=== PATIENT | male | born 1940 | race Caucasian/White ===

== ENCOUNTER → 2016-11-01 | Outpatient (CLI) | payer MEDICARE | END | disposition home or self-care (01) | LOC: LABWHC1 12:58 | PROVIDERS: ATTEND Psychiatry & Neurology Neurology | DX: I48.91 Unspecified atrial fibrillation (principal) | CPT/HCPCS: 36415; 93005 ==

== ENCOUNTER → 2017-11-03 | Outpatient (CLI) | payer MEDICARE ==
--- NOTE | 2017-11-08 11:17 | HM ---
HOLTER MONITOR REPORT Patient was monitored for 24 hours. Baseline rhythm is a sinus mechanism with a normal conduction. The average rate 61 beats per minute. Minimum of 59, maximum 97 beats per minute. Ventricular ectopic activity was present in the form of rare single PVCs. Supraventricular ectopic activity was present in the form of rare single PACs. There was an episode consistent with pacemaker activity. Symptoms of dizziness and lightheadedness did not correlate with any dysrhythmia. CONCLUSION: 1. Sinus mechanism baseline rhythm with evidence of pacemaker activity with no evidence to suggest pacer malfunction. 2. Rare ventricular ectopic activity. 3. Rare supraventricular ectopic activity. 4. Symptoms of dizziness did not correlate with any dysrhythmia. MMODL / IJN: [id number] /
== END | disposition home or self-care (01) ==
LOC: RADECHMAIN 12:09
PROVIDERS: ATTEND Psychiatry & Neurology Neurology
DX: I49.3 Ventricular premature depolarization (principal); Z95.0 Presence of cardiac pacemaker
CPT/HCPCS: 93225; 93226

== ENCOUNTER 2018-03-08 20:02 | Observation (INO) | payer MEDICARE ==
[2018-03-08] MEDS ORDERED: SODIUM CHLORIDE 0.9% 1,000 ML IV STA (20:24)
--- NOTE | 2018-03-08 20:56 | ED ---
Neuro HPI - General Chief Complaint: Neuro Symptoms/Deficit Stated Complaint: Arm & hand numbness Time Seen by Provider: 03/08/18 20:12 Source: patient, RN notes reviewed Mode of arrival: ambulatory Limitations: no limitations - History of Present Illness Is the patient presenting with stroke symptoms?: No Initial Comments: This is a 77-year-old male with a history of A. 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 This has since gotten improved he still has some deficit in his duty officer but it is improving no more facial numbness or other symptoms no headache blurry vision fevers chills nausea vomiting sweats no other symptoms with respect to lower extremity weakness. He has no prior history of stroke he states. - Related Data Home Medications: Home Medications Medication Instructions Recorded Confirmed Apixaban [Eliquis] 5 mg PO BID 03/08/18 03/08/18 Atorvastatin Calcium [Lipitor] 10 mg PO HS 03/08/18 03/08/18 Carbidopa/Levodopa [Sinemet CR 1 tab PO BID@0900,1500 03/08/18 03/08/18 50-200 mg] Carbidopa/Levodopa/Entacapone 1 tab PO TID@0700,1200,1700 03/08/18 03/08/18 [Stalevo 200] Escitalopram Oxalate [Lexapro] 10 mg PO DAILY 03/08/18 03/08/18 Finasteride [Proscar] 5 mg PO DAILY 03/08/18 03/08/18 Metoprolol Succinate (ER) [Toprol 50 mg PO DAILY 03/08/18 03/08/18 Xl] Pantoprazole Sodium [Protonix] 40 mg PO DAILY 03/08/18 03/08/18 Sotalol [Betapace] 80 mg PO BID 03/08/18 03/08/18 Tamsulosin HCl [Flomax] 0.4 mg PO DAILY 03/08/18 03/08/18 Allergies/Adverse Reactions: Allergies Allergy/AdvReac Type Severity Reaction Status Date / Time No Known Allergies Allergy Verified 03/08/18 20:24 Review of Systems ROS Statement: Those systems with pertinent positive or pertinent negative responses have been documented in the HPI. ROS Other: All systems not noted in ROS Statement are negative. General Exam - General Exam Comments Initial Comments: This is a well-developed well-nourished awake alert oriented 3 male Limitations: no limitations General appearance: alert, in no apparent distress Head exam: Present: atraumatic, normocephalic, normal inspection Eye exam: Present: normal appearance, PERRL, EOMI. Absent: scleral icterus, conjunctival injection, periorbital swelling ENT exam: Present: normal exam, mucous membranes moist Neck exam: Present: normal inspection, other (Rate or JVD or bruits). Absent: tenderness, meningismus, lymphadenopathy Respiratory exam: Present: normal lung sounds bilaterally. Absent: respiratory distress, wheezes, rales, rhonchi, stridor Cardiovascular Exam: Present: regular rate, normal rhythm, normal heart sounds. Absent: systolic murmur, diastolic murmur, rubs, gallop, clicks GI/Abdominal exam: Present: soft, normal bowel sounds. Absent: distended, tenderness, guarding, rebound, rigid Extremities exam: Present: normal inspection, full ROM, normal capillary refill. Absent: tenderness, pedal edema, joint swelling, calf tenderness Back exam: Present: normal inspection Neurological exam: Present: alert, oriented X3, CN II-XII intact, motor sensory deficit (Diminished duty officer strength the right upper extremity compared to the left very minimal) Psychiatric exam: Present: normal affect, normal mood Skin exam: Present: warm, dry, intact, normal color. Absent: rash Stroke MDM - Lab Data Result diagrams: 03/08/18 20:36 03/08/18 20:36 Lab Results 03/08/18 03/08/18 03/08/18 Range/Units 20:36 20:36 20:36 WBC 5.9 (3.8-10.6) k/uL RBC 4.43 (4.30-5.90) m/uL Hgb 13.4 (13.0-17.5) gm/dL Hct 40.4 (39.0-53.0) % MCV 91.0 (80.0-100.0) fL MCH 30.3 (25.0-35.0) pg MCHC 33.2 (31.0-37.0) g/dL RDW 13.4 (11.5-15.5) % Plt Count 184 (150-450) k/uL Neutrophils % 70 % Lymphocytes % 21 % Monocytes % 5 % Eosinophils % 2 % Basophils % 1 % Neutrophils # 4.1 (1.3-7.7) k/uL Lymphocytes # 1.3 (1.0-4.8) k/uL Monocytes # 0.3 (0-1.0) k/uL Eosinophils # 0.1 (0-0.7) k/uL Basophils # 0.0 (0-0.2) k/uL PT (9.0-12.0) sec INR (<1.2) APTT (22.0-30.0) sec Sodium 141 (137-145) mmol/L Potassium 4.4 (3.5-5.1) mmol/L Chloride 105 (98-107) mmol/L Carbon Dioxide 30 (22-30) mmol/L Anion Gap 6 mmol/L BUN 15 (9-20) mg/dL Creatinine 0.90 (0.66-1.25) mg/dL Est GFR (CKD-EPI)AfAm >90 (>60 ml/min/1.73 sqM) Est GFR (CKD-EPI)NonAf 83 (>60 ml/min/1.73 sqM) Glucose 102 H (74-99) mg/dL Calcium 9.1 (8.4-10.2) mg/dL Magnesium 2.0 (1.6-2.3) mg/dL Total Bilirubin 0.8 (0.2-1.3) mg/dL AST 22 (17-59) U/L ALT 16 L (21-72) U/L Alkaline Phosphatase 61 (38-126) U/L Total Creatine Kinase 38 L (55-170) U/L CK-MB (CK-2) 0.4 (0.0-2.4) ng/mL CK-MB (CK-2) Rel Index 1.1 Troponin I <0.012 (0.000-0.034) ng/mL Total Protein 6.3 (6.3-8.2) g/dL Albumin 3.4 L (3.5-5.0) g/dL 03/08/18 Range/Units 20:36 WBC (3.8-10.6) k/uL RBC (4.30-5.90) m/uL Hgb (13.0-17.5) gm/dL Hct (39.0-53.0) % MCV (80.0-100.0) fL MCH (25.0-35.0) pg MCHC (31.0-37.0) g/dL RDW (11.5-15.5) % Plt Count (150-450) k/uL Neutrophils % % Lymphocytes % % Monocytes % % Eosinophils % % Basophils % % Neutrophils # (1.3-7.7) k/uL Lymphocytes # (1.0-4.8) k/uL Monocytes # (0-1.0) k/uL Eosinophils # (0-0.7) k/uL Basophils # (0-0.2) k/uL PT 10.5 (9.0-12.0) sec INR 1.0 (<1.2) APTT 28.1 (22.0-30.0) sec Sodium (137-145) mmol/L Potassium (3.5-5.1) mmol/L Chloride (98-107) mmol/L Carbon Dioxide (22-30) mmol/L Anion Gap mmol/L BUN (9-20) mg/dL Creatinine (0.66-1.25) mg/dL Est GFR (CKD-EPI)AfAm (>60 ml/min/1.73 sqM) Est GFR (CKD-EPI)NonAf (>60 ml/min/1.73 sqM) Glucose (74-99) mg/dL Calcium (8.4-10.2) mg/dL Magnesium (1.6-2.3) mg/dL Total Bilirubin (0.2-1.3) mg/dL AST (17-59) U/L ALT (21-72) U/L Alkaline Phosphatase (38-126) U/L Total Creatine Kinase (55-170) U/L CK-MB (CK-2) (0.0-2.4) ng/mL CK-MB (CK-2) Rel Index Troponin I (0.000-0.034) ng/mL Total Protein (6.3-8.2) g/dL Albumin (3.5-5.0) g/dL - NIH Stroke Scale 1a. Level of Consciousness: (0) alert 1b. LOC Questions: (0) answers correctly 1c. LOC Commands: (0) performs tasks correctly 2. Best Gaze: (0) normal 3. Visual: (0) no visual loss 4. Facial Palsy: (0) normal symmetrical movement 5a. Motor Arm Left: (0) no drift 5b. Motor Arm Right: (0) no drift 6a. Motor Leg Left: (0) no drift 6b. Motor Leg Right: (0) no drift 7. Limb Ataxia: (0) absent 8. Sensory: (0) normal 9. Best Language: (0) no aphasia 10. Dysarthria: (0) normal 11. Extinction/Inattention: (0) no abnormality - Thrombolytic Inclusion/Exclusion Thrombolytic Contraindications: Rapidly Improving s/s - Medical Decision Making I did review the imaging and report no acute findings. Please see the complete report for all information. I did have a discussed with patient family regarding findings. He is totally resolve with respect to symptoms he presented with. He will be admitted for evaluation by neurology. I did discuss case with Taz Mann who is covering for Dr. Donavan cheng. - EKG Data -: EKG Interpreted by Me (Paced rhythm rate of 60 SC interval 104 QRS duration 94 QT since QTC 460/46) Past Medical History Past Medical History: Atrial Fibrillation, Hyperlipidemia, Hypertension Additional Past Medical History / Comment(s): parkinson's History of Any Multi-Drug Resistant Organisms: None Reported Past Surgical History: Appendectomy, Heart Catheterization, Pacemaker Additional Past Surgical History / Comment(s): colonoscopy, polyp removal. Past Psychological History: No Psychological Hx Reported Smoking Status: Never smoker Past Alcohol Use History: None Reported Past Drug Use History: None Reported Course Vital Signs 03/08/18 03/08/18 03/08/18 20:05 20:30 20:57 Temperature 98.1 F Pulse Rate 66 60 Respiratory 16 16 Rate Blood Pressure 132/82 165/92 167/90 O2 Sat by Pulse 97 97 99 Oximetry 03/08/18 03/08/18 03/08/18 21:00 21:10 21:20 Temperature Pulse Rate 60 60 Respiratory 16 16 16 Rate Blood Pressure 167/109 188/101 178/98 O2 Sat by Pulse 100 100 98 Oximetry 03/08/18 21:30 Temperature Pulse Rate 60 Respiratory 16 Rate Blood Pressure 178/98 O2 Sat by Pulse Oximetry - Reevaluation(s) Reevaluation #1: 03/08/18 22:29 Evaluation the patient after return from CAT scan revealed increased mobility of his right upper extremity. No other symptoms. Critical Care Time Critical Care Time: Yes Critical Care Time: 31 minutes of critical care time which includes initial presentation with history physical labs x-rays several reevaluations of the patient. Discussed with patient family regarding findings discussion with the admitting service admission orders and documentation of the above Disposition Clinical Impression: Transient cerebral ischemia Disposition: ADMITTED IP TO THIS [facility] Condition: Stable Referrals: Estuardo Vargas DO [Primary Care Provider] - 1-2 days
[2018-03-08 20:57] LABS: Basophils % (A) 1 %; Eosinophils # (A) 0.1 k/uL (0-0.7); Eosinophils % (A) 2 %; HCT 40.4 % (39.0-53.0); HGB 13.4 gm/dL (13.0-17.5); Lymphocytes # (A) 1.3 k/uL (1.0-4.8); Lymphocytes % (A) 21 %; MCH 30.3 pg (25.0-35.0); MCHC 33.2 g/dL (31.0-37.0); Mean Platelet Volume 8.5; Monocytes # (A) 0.3 k/uL (0-1.0); Monocytes % (A) 5 %; Neutrophils # (A) 4.1 k/uL (1.3-7.7); Neutrophils % (A) 70 %; Platelet Count 184 k/uL (150-450); RBC 4.43 m/uL (4.30-5.90); RDW 13.4 % (11.5-15.5); WBC 5.9 k/uL (3.8-10.6)
[2018-03-08 21:01] LABS: ALT 16 U/L (21-72); AST 22 U/L (17-59); Albumin 3.4 g/dL (3.5-5.0); Alkaline Phosphatase 61 U/L (38-126); Anion Gap 6 mmol/L; Blood Urea Nitrogen 15 mg/dL (9-20); Calcium 9.1 mg/dL (8.4-10.2); Carbon Dioxide 30 mmol/L (22-30); Chloride 105 mmol/L (98-107); Glucose 102 mg/dL (74-99); Potassium 4.4 mmol/L (3.5-5.1); Sodium 141 mmol/L (137-145); Total Bilirubin 0.8 mg/dL (0.2-1.3); Total Protein 6.3 g/dL (6.3-8.2)
[2018-03-08 21:02] LABS: Partial Thromboplastin Time 28.1 sec (22.0-30.0); Prothrombin Time 10.5 sec (9.0-12.0)
[2018-03-08 21:06] LABS: Creatine Kinase 38 U/L (55-170)
[2018-03-08 21:17] LABS: Creatine Kinase MB 0.4 ng/mL (0.0-2.4); Troponin I <0.012 ng/mL (0.000-0.034)
--- NOTE | 2018-03-08 21:23 | XR ---
EXAMINATION TYPE: XR chest 2V DATE OF EXAM: 03/08/2018 COMPARISON: NONE HISTORY: arm numbness TECHNIQUE: Frontal and lateral views of the chest are obtained. FINDINGS: There is no heart failure nor confluent pneumonic infiltrate. Costophrenic angles are partha r. Thoracic aorta is atheromatous. There is left axillary pacemaker with the lead tips in the right v entricle. There is no pleural effusion. Bony thorax is intact. IMPRESSION: No active cardiopulmonary disease. Normal heart.
--- NOTE | 2018-03-08 21:24 | CT ---
EXAMINATION TYPE: CT brain wo con for TPA DATE OF EXAM: 03/08/2018 COMPARISON: None HISTORY: Right sided weakness. CT DLP: 1494.8 mGycm Automated exposure control for dose reduction was used. FINDINGS: There is enlargement of the left sylvian fissure related to apparent old encephalomalacia and tempora l lobe atrophy. There is no mass effect nor midline shift. There is no sign of intracranial hemorrhag e. The calvarium is intact. There is cerebral cortical atrophy. 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 NO ACUTE INTRACRANIAL ABNORMALITY.
--- NOTE | 2018-03-08 21:54 | CT ---
EXAMINATION TYPE: CT angio head neck DATE OF EXAM: 03/08/2018 HISTORY: Right sided weakness. COMPARISON: None CT DLP: 371.9 mGycm. Automated Exposure Control for Dose Reduction was Utilized. TECHNIQUE: CTA scan of the neck is performed with IV Contrast, patient injected with 65ml mL of Isov ue 370, axial images are obtained, coronal and sagittal reformatted images are reviewed. Three-D nishant nstructed images are created on an independent workstation and reviewed. FINDINGS: There are 3-D post processed images. There is normal branching pattern of the great vessels on the aortic arch. There is bilateral patency of the subclavian arteries. There is bilateral arterial flow in the vertebral arteries which are huma rly symmetric. There is arterial flow in the common internal and external carotid arteries bilaterall y. I see no evidence of stenosis. There is no significant plaque formation. There is arterial flow in the vertebrobasilar artery system. Basilar artery fills from both sides. There is arterial flow in the anterior middle and posterior cerebral arteries. There is no mass effec t. There is no sign of intracranial aneurysm or neovascularity. There is normal contrast opacificatio n of the venous sinuses. I see no evidence of arterial stenosis. There is ectasia of the parasellar i nternal carotid arteries. These measure up to 6 mm. IMPRESSION: No evidence of any arterial stenosis. No evidence of aneurysm.
[2018-03-08] MEDS ORDERED: SODIUM CHLORIDE 0.9% 1,000 ML IV SCH (22:45)
[2018-03-08 23:37] VITALS: BMI 24.3
[2018-03-09 06:06] LABS: Cholesterol 143 mg/dL (<200); HDL Cholesterol 42 mg/dL (40-60); LDL Cholesterol,Calculated 71 mg/dL (0-99); Triglycerides 149 mg/dL (<150)
[2018-03-09] MEDS ORDERED: STALEVO PO SCH (07:00)
[2018-03-09] MEDS ORDERED: CARBIDOPA PO SCH (07:00)
[2018-03-09] MEDS ORDERED: ENTACAPONE PO SCH (07:00)
[2018-03-09] MEDS ORDERED: LEVODOPA PO SCH (07:00)
[2018-03-09 08:16] VITALS: BP 155/76; PULSE 59; RESP 18; TEMP 98.5
[2018-03-09] MEDS ORDERED: TAMSULOSIN 0.4 MG CAP.ER.24H PO SCH (09:00)
[2018-03-09] MEDS ORDERED: FINASTERIDE 5 MG TAB PO SCH (09:00)
[2018-03-09] MEDS ORDERED: CARBIDOPA-LEVODOPA ER 50-200MG 1 EACH TABLET.ER PO SCH (09:00)
[2018-03-09] MEDS ORDERED: METOPROLOL SUCCINATE (ER) 50 MG TAB.ER.24H PO SCH (09:00)
[2018-03-09] MEDS ORDERED: CLOPIDOGREL 75 MG TAB PO SCH (09:00)
[2018-03-09] MEDS ORDERED: SOTALOL 80 MG TAB PO SCH (09:00)
[2018-03-09] MEDS ORDERED: PANTOPRAZOLE 40 MG TABLET PO SCH (09:00)
[2018-03-09] MEDS ORDERED: APIXABAN 5 MG TAB PO SCH (09:00)
[2018-03-09] MEDS ORDERED: ESCITALOPRAM 10 MG TAB PO SCH (09:00)
--- NOTE | 2018-03-09 11:42 | P.DS ---
Providers Date of admission: 03/08/18 22:32 Attending physician: Ketan Go Consults: 03/08/18 22:39 Consult Physician Routine Consulting Provider: Wendy Solis Consult Reason/Comments: TIA Do you want consulting provider notified?: Yes Primary care physician: [facility] Course: please refer to my HPI for further details Patient Condition at Discharge: Stable Plan - Discharge Summary Discharge Rx Participant: Yes New Discharge Prescriptions: New Atorvastatin [Lipitor] 40 mg PO HS #30 tab Continue Pantoprazole Sodium [Protonix] 40 mg PO DAILY Finasteride [Proscar] 5 mg PO DAILY Escitalopram Oxalate [Lexapro] 10 mg PO DAILY Carbidopa/Levodopa/Entacapone [Stalevo 200] 1 tab PO TID@0700,1200,1700 Metoprolol Succinate (ER) [Toprol XL] 50 mg PO DAILY Carbidopa/Levodopa [Sinemet CR 50-200 mg] 1 tab PO BID@0900,1500 Sotalol [Betapace] 80 mg PO BID Apixaban [Eliquis] 5 mg PO BID Tamsulosin HCl [Flomax] 0.4 mg PO DAILY Discontinued Atorvastatin Calcium [Lipitor] 10 mg PO HS Discharge Medication List Apixaban [Eliquis] 5 mg PO BID 03/08/18 [History] Carbidopa/Levodopa [Sinemet CR 50-200 mg] 1 tab PO BID@0900,1500 03/08/18 [ History] Carbidopa/Levodopa/Entacapone [Stalevo 200] 1 tab PO TID@0700,1200,1700 [History] Escitalopram Oxalate [Lexapro] 10 mg PO DAILY 03/08/18 [History] Finasteride [Proscar] 5 mg PO DAILY 03/08/18 [History] Metoprolol Succinate (ER) [Toprol XL] 50 mg PO DAILY 03/08/18 [History] Pantoprazole Sodium [Protonix] 40 mg PO DAILY 03/08/18 [History] Sotalol [Betapace] 80 mg PO BID 03/08/18 [History] Tamsulosin HCl [Flomax] 0.4 mg PO DAILY 03/08/18 [History] Atorvastatin [Lipitor] 40 mg PO HS #30 tab 12/28/18 [Rx] Follow up Appointment(s)/Referral(s): Estuardo Vargas DO [Primary Care Provider] - 03/15/18 3:30 pm (Please arrive 15 minutes early with ID and insurance card for the new year.) Torito Melendez DO [STAFF PHYSICIAN] - 03/23/18 11:45 am Patient Instructions/Handouts: Transient Ischemic Attack (DC), Heart Healthy Diet (DC) Discharge Disposition: HOME WITH HOME HEALTH SERVICES
--- NOTE | 2018-03-09 11:42 | P.HPIM ---
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 Patient has no prior history of strokes patient has atrial fibrillation on anticoagulation with Eliquis along with aspirin and Plavix secondary to recent cardiac catheterization all the workup so far including CT angios the head and neck carotid Doppler and the CT of the head did not show any significant abnormality patient's symptoms completely resolved and the patient is wishing to go home patient does have history of Parkinson's and the does have weakness from Parkinson's will get PT and OT evaluation after that patient will be discharged today we'll increase the dose of statin from 10 mg to 40 mg patient get that can get light and panel done as an outpatient and the patient will follow with Neurology with his neurologist as an outpatient no changes in anti-coagulation is being made because patient is already on Eliquis aspirin and Plavix. Review of Systems REVIEW OF SYSTEMS: CONSTITUTIONAL: No fever, no malaise, no fatigue. HEENT: No recent visual problems or hearing problems. Denied any sore throat. CARDIOVASCULAR: No chest pain, orthopnea, PND, no palpitations, no syncope. PULMONARY: No shortness of breath, no cough, no hemoptysis. GASTROINTESTINAL: No diarrhea, no nausea, no vomiting, no abdominal pain. NEUROLOGICAL: as mentioned in HPI HEMATOLOGICAL: Denies any bleeding or petechiae. GENITOURINARY: Denies any burning micturition, frequency, or urgency. MUSCULOSKELETAL/RHEUMATOLOGICAL: Denies any joint pain, swelling, or any muscle pain. ENDOCRINE: Denies any polyuria or polydipsia. The rest of the 14-point review of systems is negative. Past Medical History Past Medical History: Atrial Fibrillation, Hyperlipidemia, Hypertension Additional Past Medical History / Comment(s): parkinson's History of Any Multi-Drug Resistant Organisms: None Reported Past Surgical History: Appendectomy, Heart Catheterization, Pacemaker Additional Past Surgical History / Comment(s): colonoscopy, polyp removal. Type of Cardiac Device: Permanent Pacemaker Device Placement Date:: 2015 Past Psychological History: Depression Smoking Status: Never smoker Past Alcohol Use History: None Reported Past Drug Use History: None Reported Medications and Allergies Home Medications Medication Instructions Recorded Confirmed Type Apixaban [Eliquis] 5 mg PO BID 03/08/18 03/08/18 History Carbidopa/Levodopa [Sinemet CR 1 tab PO BID@0900,1500 03/08/18 03/08/18 History 50-200 mg] Carbidopa/Levodopa/Entacapone 1 tab PO TID@0700,1200,1700 03/08/18 03/08/18 History [Stalevo 200] Escitalopram Oxalate [Lexapro] 10 mg PO DAILY 03/08/18 03/08/18 History Finasteride [Proscar] 5 mg PO DAILY 03/08/18 03/08/18 History Metoprolol Succinate (ER) [Toprol 50 mg PO DAILY 03/08/18 03/08/18 History XL] Pantoprazole Sodium [Protonix] 40 mg PO DAILY 03/08/18 03/08/18 History Sotalol [Betapace] 80 mg PO BID 03/08/18 03/08/18 History Tamsulosin HCl [Flomax] 0.4 mg PO DAILY 03/08/18 03/08/18 History Atorvastatin [Lipitor] 40 mg PO HS #30 tab 03/09/18 Rx Allergies Allergy/AdvReac Type Severity Reaction Status Date / Time lisinopril Allergy Anaphylaxis Verified 03/08/18 23:43 Physical Exam Vitals: Vital Signs Temp Pulse Pulse Resp BP BP Pulse Ox 03/09/18 07:55 98.5 F 59 L 18 155/76 96 03/09/18 04:00 61 16 120/69 95 03/09/18 00:00 98.4 F 60 17 183/94 97 03/08/18 21:30 60 16 178/98 03/08/18 21:20 60 16 178/98 98 03/08/18 21:10 60 16 188/101 100 03/08/18 21:00 16 167/109 100 03/08/18 20:57 60 16 167/90 99 03/08/18 20:30 165/92 97 03/08/18 20:05 98.1 F 66 16 132/82 97 Intake and Output 03/08/18 03/09/18 03/09/18 22:59 06:59 14:59 Intake Total 240 Output Total 250 Balance -250 240 Intake: Oral 240 Output: Urine 250 Other: # Voids 1 Weight 72.4 kg 72.4 kg PHYSICAL EXAMINATION: GENERAL: The patient is alert and oriented x3, not in any acute distress. Well developed, well nourished. HEENT: Pupils are round and equally reacting to light. EOMI. No scleral icterus. No conjunctival pallor. Normocephalic, atraumatic. No pharyngeal erythema. No thyromegaly. CARDIOVASCULAR: S1 and S2 present. No murmurs, rubs, or gallops. PULMONARY: Chest is clear to auscultation, no wheezing or crackles. ABDOMEN: Soft, nontender, nondistended, normoactive bowel sounds. No palpable organomegaly. MUSCULOSKELETAL: No joint swelling or deformity. EXTREMITIES: No cyanosis, clubbing, or pedal edema. NEUROLOGICAL: Gross neurological examination did not reveal any focal deficits. of some generalized and chronic weakness from Parkinson's SKIN: No rashes. Results CBC & Chem 7: 03/08/18 20:36 03/08/18 20:36 Labs: Abnormal Lab Results - Last 24 Hours (Table) 03/08/18 03/08/18 Range/Units 20:36 20:36 Glucose 102 H (74-99) mg/dL ALT 16 L (21-72) U/L Total Creatine Kinase 38 L (55-170) U/L Albumin 3.4 L (3.5-5.0) g/dL Thrombosis Risk Factor Assmnt - Choose All That Apply Any of the Below Risk Factors Present?: No Other Risk Factors: Yes Each Risk Factor Represents 3 Points: Age 75 years or older Other congenital or acquired thrombophilia - If yes, enter type in comment: No Thrombosis Risk Factor Assessment Total Risk Factor Score: 3 Thrombosis Risk Factor Assessment Level: Moderate Risk Assessment and Plan Plan: possible TIA, ischemic in nature involving the left middle cerebral artery territory completely resolved symptoms: No further workup will be done and patient will be discharging the dose of statin patient will continue his dual antiplatelet therapy and Eliquis -atrial fibrillation: Wasn't a rate controlled in sinus rhythm continue with anticoagulation and continue her sotalol and metoprolol discussed with cardiology here they believe that patient is okay to be on the stool beta blockers -Hyperlipidemia continue with atorvastatin increasing the dose of atorvastatin because of his possible TIA -Parkinson's without any exaggerated symptoms at this time patient will continue his carbidopa levodopa. -Testes visual reflux disease -Benign prostatic atrophy -coronary artery disease with cardiac catheterization and recent stent less than a year ago
[2018-03-09] MEDS ORDERED: ATORVASTATIN 10 MG TAB PO SCH (21:00)
[2018-03-09] MEDS ORDERED: ASPIRIN 325 MG TAB PO SCH (23:00)
== END 2018-03-09 12:00 | disposition home health service (06) ==
LOC: EC 20:02 → 3SCARD 22:32
PROVIDERS: ADMIT Internal Medicine; ATTEND Internal Medicine
DX: R20.0 Anesthesia of skin (principal); R53.1 Weakness; I48.91 Unspecified atrial fibrillation; I25.10 Atherosclerotic heart disease of native coronary artery without angina pectoris; G20 Parkinson's disease; I10 Essential (primary) hypertension; E78.5 Hyperlipidemia, unspecified; F32.9 Major depressive disorder, single episode, unspecified; N42.89 Other specified disorders of prostate; K21.9 Gastro-esophageal reflux disease without esophagitis; Z95.5 Presence of coronary angioplasty implant and graft; Z79.01 Long term (current) use of anticoagulants; Z79.82 Long term (current) use of aspirin; Z79.899 Other long term (current) drug therapy; Z88.8 Allergy status to other drugs, medicaments and biological substances; R29.700 NIHSS score 0
CPT/HCPCS: 96376; 96360; 96361; 99291; 36415; 93005; 80061; 80053; 82550; 82553; 83735; 84484; 85025; 85610; 85730; 71046; 70496; 70450; 70498; G0378 ×2; S0138; Q9967

== ENCOUNTER 2023-07-10 12:20 | Emergency (ER) | payer MEDICARE ==
--- NOTE | 2023-07-10 12:30 | ED ---
Chest Pain HPI - General Chief Complaint: Chest Pain Stated Complaint: Chest pain Time Seen by Provider: 07/10/23 12:21 Source: family, EMS, RN notes reviewed, old records reviewed Mode of arrival: EMS Limitations: no limitations - History of Present Illness Initial Comments: This is an 82-year-old male to ER for evaluation of chest pain. History of at rial fibrillation hypertension high cholesterol in the ER for chest pain here in the ER that awoke him from sleep but patient currently has no chest pain MD Complaint: chest pain -: hour(s) Onset: during rest, during exertion Pain Location: substernal, left chest Pain Radiation: none Severity: moderate Severity scale (1-10): 4 Quality: tightness, aching Consistency: constant Improves With: nothing Worsens With: nothing Context: recent illness Anginal Symptoms: nausea Other Symptoms: cough Treatments Prior to Arrival: none - Related Data Home Medications Medication Instructions Recorded Confirmed Apixaban [Eliquis] 5 mg PO BID@0900,1700 03/08/18 07/10/23 Carbidopa/Levodopa [Sinemet CR 1 tab PO BID@0900,1400 03/08/18 07/10/23 50-200 mg] Carbidopa/Levodopa/Entacapone 1 tab PO TID@0700,1200,1700 03/08/18 07/10/23 [Stalevo 200] Metoprolol Succinate (ER) [Toprol 50 mg PO DAILY@0900 03/08/18 07/10/23 XL] Pantoprazole Sodium [Protonix] 40 mg PO DAILY@0900 03/08/18 07/10/23 Sotalol [Betapace] 80 mg PO DAILY@0900 03/08/18 07/10/23 Tamsulosin HCl [Flomax] 0.4 mg PO BID@0900,1700 03/08/18 07/10/23 Atorvastatin [Lipitor] 40 mg PO HS@169907/10/23 07/10/23 DULoxetine HCL [Cymbalta] 60 mg PO DAILY@0900 07/10/23 07/10/23 Memantine [Namenda] 10 mg PO BID@0900,1700 07/10/23 07/10/23 Allergies Allergy/AdvReac Type Severity Reaction Status Date / Time lisinopril Allergy Anaphylaxis Verified 07/10/23 13:20 Review of Systems ROS Statement: Those systems with pertinent positive or pertinent negative responses have been documented in the HPI. ROS Other: All systems not noted in ROS Statement are negative. EKG Findings - EKG Comments: EKG Findings:: EKG is sinus 84 MS 174 QRS 89 QTc 431 - EKG Results: EKG: interpreted by MAURI Past Medical History Past Medical History: Atrial Fibrillation, Hyperlipidemia, Hypertension Additional Past Medical History / Comment(s): parkinson's History of Any Multi-Drug Resistant Organisms: None Reported Past Surgical History: Appendectomy, Heart Catheterization, Pacemaker Additional Past Surgical History / Comment(s): colonoscopy, polyp removal. Type of Cardiac Device: Permanent Pacemaker Device Placement Date:: 2015 Past Psychological History: Depression Past Alcohol Use History: None Reported Past Drug Use History: None Reported General Exam Limitations: no limitations General appearance: alert, in no apparent distress Head exam: Present: atraumatic, normocephalic, normal inspection Eye exam: Present: normal appearance, PERRL, EOMI. Absent: scleral icterus, conjunctival injection, periorbital swelling ENT exam: Present: normal exam, mucous membranes moist Neck exam: Present: normal inspection. Absent: tenderness, meningismus, lymphadenopathy Respiratory exam: Present: normal lung sounds bilaterally. Absent: respiratory distress, wheezes, rales, rhonchi, stridor Cardiovascular Exam: Present: regular rate, normal rhythm, normal heart sounds. Absent: systolic murmur, diastolic murmur, rubs, gallop, clicks GI/Abdominal exam: Present: soft, normal bowel sounds. Absent: distended, t enderness, guarding, rebound, rigid Extremities exam: Present: normal inspection, full ROM, normal capillary refill. Absent: tenderness, pedal edema, joint swelling, calf tenderness Back exam: Present: normal inspection Neurological exam: Present: alert, oriented X3, CN II-XII intact Psychiatric exam: Present: normal affect, normal mood Skin exam: Present: warm, dry, intact, normal color. Absent: rash Course Vital Signs 07/10/23 07/10/23 12:22 13:24 Temperature 98.6 F Pulse Rate 87 55 L Respiratory 20 20 Rate Blood Pressure 127/90 155/83 O2 Sat by Pulse 95 98 Oximetry - Reevaluation(s) Reevaluation #1: Records reviewed Reevaluation #2: Patient has no complaints here in the ER Reevaluation #3: Patient informed of results and questions answered Reevaluation #4: Was pt. sent in by a medical professional or institution ([facility], [employer], urgent care, hospital, or fpc...) When possible be specific @ -no Did you speak to anyone other than the patient for history (EMS, parent, family, police, friend...)? What history was obtained from this source @ -no Did you review nursing and triage notes (agree or disagree)? Why? @ -agree Are old charts reviewed (outside hosp., previous admission, EMS record, old EKG, old radiological studies, urgent care reports/EKG's, fpc records)? Report findings @ -yes Differential Diagnosis (chest pain, altered mental status, abdominal pain women, abdominal pain men, vaginal bleeding, weakness, fever, dyspnea, syncope, headache, dizziness, GI bleed, back pain, seizure, CVA, palpatations, mental health, musculoskeletal)? @ -prior EKG interpreted by me (3pts min.). @ -yes X-rays interpreted by me (1pt min.). @ -yes negative for acute disease CT interpreted by me (1pt min.). @ -no U/S interpreted by me (1pt. min.). @ -no What testing was considered but not performed or refused? (CT, X-rays, U/S, labs)? Why? @ -none What meds were considered but not given or refused? Why? @ -none Did you discuss the management of the patient with other professionals (professionals i.e. [facility], [employer], lab, RT, psych nurse, social psychologist, sewer pipe cleaner, teacher, surface to air weapons officer, case work aide)? Give summary @ -no Was smoking cessation discussed for >3mins.? @ -no Was critical care preformed (if so, how long)? @ -no Were there social determinants of health that impacted care today? How? (Homelessness, low income, unemployed, alcoholism, drug addiction, transportation, low edu. Level, literacy, decrease access to med. care, long-term, rehab)? @ -none Was there de-escalation of care discussed even if they declined (Discuss DNR or withdrawal of care, Hospice)? DNR status @ -no What co-morbidities impacted this encounter? (DM, HTN, Smoking, COPD, CAD, Cancer, CVA, ARF, Chemo, Hep., AIDS, mental health diagnosis, sleep apnea, morbid obesity)? @ -none Was patient admitted / discharged? Hospital course, mention meds given and route, prescriptions, significant lab abnormalities, going to OR and other pertinent info. @ -82 male for chest pain here in the ER but has no complaints of chest pain while in the emergency department today. Patient feels comfortable for discharge home Undiagnosed new problem with uncertain prognosis? @ -no Drug Therapy requiring intensive monitoring for toxicity (Heparin, Nitro, Insulin, Cardizem)? @ -no Were any procedures done? @ -no Diagnosis/symptom? @ -Chest pain Acute, or Chronic, or Acute on Chronic? @ -Acute Uncomplicated (without systemic symptoms) or Complicated (systemic symptoms)? @ -Complicated Side effects of treatment? @ -no Exacerbation, Progression, or Severe Exacerbation? @ -exacerbation Poses a threat to life or bodily function? How? (Chest pain, [place], [place], pneumonia, PE, COPD, DKA, ARF, appy, cholecystitis, CVA, Diverticulitis, Homicidal, Suicidal, threat to staff... and all critical care pts) @ -yes Reevaluation #5: Differential Chest Pain: Stable Angina, Unstable Angina, STEMI, NSTEMI Aortic Dissection, Pneumothorax, Musculoskeletal, Esophageal Spasm GERD, Cholecystitis, Pancreatitis, Zoster, this is not meant to be an all-inclusive list. Chest Pain MDM - MDM 82 male to ER for evaluation of chest pain. Patient has normal troponin and EKG here in the ER normal testing as well patient feels well and chest pain is resolved and patient feels comfortable for discharge home Disposition Clinical Impression: Atypical chest pain, Chest pain Disposition: HOME SELF-CARE Condition: Fair Instructions (If sedation given, give patient instructions): Chest Pain (ED) Is patient prescribed a controlled substance at d/c from ED?: No Referrals: Heber Lund MD [Primary Care Provider] - 1-2 days Time of Disposition: 13:00
[2023-07-10 12:42] LABS: Basophils % (A) 1 %; Eosinophils # (A) 0.2 k/uL (0-0.7); Eosinophils % (A) 3 %; Lymphocytes # (A) 0.9 k/uL (1.0-4.8); Lymphocytes % (A) 15 %; MCH 30.3 pg (25.0-35.0); MCHC 32.6 g/dL (31.0-37.0); MCV 93.1 fL (80.0-100.0); Mean Platelet Volume 8.7; Monocytes # (A) 0.3 k/uL (0-1.0); Monocytes % (A) 5 %; Neutrophils # (A) 4.3 k/uL (1.3-7.7); Neutrophils % (A) 75 %; Platelet Count 176 k/uL (150-450); WBC 5.7 k/uL (3.8-10.6)
[2023-07-10 12:51] LABS: Partial Thromboplastin Time 27.4 sec (22.0-30.0); Prothrombin Time 11.1 sec (10.0-12.5)
[2023-07-10 13:00] LABS: ALT 8 U/L (4-49); African American GFR (CKD) >90 (>60 ml/min/1.73 sqM); Albumin 3.9 g/dL (3.5-5.0); Anion Gap 7 mmol/L; Blood Urea Nitrogen 20 mg/dL (9-20); Calcium 8.8 mg/dL (8.4-10.2); Carbon Dioxide 25 mmol/L (22-30); Chloride 109 mmol/L (98-107); Glucose 104 mg/dL (74-99); Lipase 125 U/L (23-300); Non-African American GFR(CKD) 79 (>60 ml/min/1.73 sqM); Sodium 141 mmol/L (137-145); Total Bilirubin 1.1 mg/dL (0.2-1.3)
[2023-07-10 13:03] LABS: AST 26 U/L (17-59); Alkaline Phosphatase 78 U/L (38-126); Magnesium 2.3 mg/dL (1.6-2.3); Potassium 4.8 mmol/L (3.5-5.1)
--- NOTE | 2023-07-10 13:07 | XR ---
EXAMINATION TYPE: XR chest 1V portable DATE OF EXAM: 07/10/2023 COMPARISON: 03/08/2018 HISTORY: Chest pain TECHNIQUE: Single frontal view of the chest is obtained. FINDINGS: There is no focal air space opacity, pleural effusion, or pneumothorax seen. The cardiac silhouette size is within normal limits. The osseous structures are intact. Atherosclerotic change and ectasia of the thoracic aorta. Cardiac device noted. Limited inspiration w ith elevated right hemidiaphragm. Suspect underlying COPD. Diffuse osteopenia. IMPRESSION: No acute process.
[2023-07-10 13:09] LABS: NT-Pro-B-Type Natriuretic Pept 477 pg/mL
[2023-07-10 13:50] VITALS: BP 155/83; PULSE 55; RESP 20; TEMP 98.6
== END 2023-07-10 13:38 | disposition home or self-care (01) ==
LOC: EC 12:20
DX: R07.89 Other chest pain (principal); Z88.8 Allergy status to other drugs, medicaments and biological substances
CPT/HCPCS: 36415; 71045; 80053; 83690; 83735; 83880; 84484; 85025; 85610; 85730; 93005; 99285

== ENCOUNTER → 2023-09-01 | Outpatient (CLI) | payer MEDICARE ==
--- NOTE | 2023-09-01 13:09 | FL ---
Exam Date: 09/01/2023 12:00 PM. Modified barium swallow for dysphagia. Consistencies administered: Various consistency of barium. Fluoro time: 2:19 FLUORO, No images were sent to PACS. Please see speech pathology report. DAP: None mGym2 Gycm2
== END | disposition home or self-care (01) ==
LOC: RADFLMAIN 11:10
PROVIDERS: ATTEND Internal Medicine Gastroenterology
DX: R13.19 Other dysphagia (principal)
CPT/HCPCS: 74230